=== PATIENT | male | born 1950 | race Caucasian/White ===

== ENCOUNTER → 2017-02-17 | Outpatient (REF) | payer MEDICARE, OTHER ==
[~2017-02-17] MED LIST: /ADVA50050 IN; /DULO30CA PO; /PANT40TA; /PANT40TA PO; ABIL2TAB; ACET65TA OR; ADVA230A INH; ALBU17IN2 IN; ALBUTEROL; ALKACAP2 PO; ALPR1TAB3 PO; ASPI1TAB PO; ASPI81TA83 PO; ATOR1TAB19 PO; BENZOCAINE TOP; BISO5TAB5 PO; COMBVENT INH; COUM2.5T11 PO; DOCUSATE OR; FINA5TAB2 PO; FISH1000 PO; FISH120012 PO; IBUP-1114 PO; KLON2TAB PO; LASI40TA PO; LIPI10TA PO; LOPR50TA PO; METH40TA PO; METO50TA4; MILKSUS OR; MULT1TAB10 PO; OXYC-299 PO; PANT40TA2 PO; PERC5TAB6 PO; PRED10TA2 OR; PRED20TA OR; PROS5TAB PO; SENNA OR; SPIR1CAP INH; TOPR50TA OR; VARE05TA; VITA100C7 PO; VITA400C PO; VITAMIN B COMPLE1 PO; WELL100T PO; WELL75TA OR; XANA3TAB; ventolin INH; zofran OR
== END ==
LOC: M LAB REF 12:52
PROVIDERS: ATTEND Nurse Practitioner Family
DX: Z01.89 Encounter for other specified special examinations (principal)

== ENCOUNTER → 2017-11-16 | Outpatient (CLI) | payer MEDICARE, OTHER | LOC: M SMT 11:31 | DX: J43.2 Centrilobular emphysema (principal) | CPT/HCPCS: 71046 ==

== ENCOUNTER → 2019-05-09 | Outpatient (CLI) | payer MEDICARE, OTHER ==
[~2019-05-09] MED LIST changes: -/ADVA50050 IN; -/DULO30CA PO; -/PANT40TA; -/PANT40TA PO; +ADVA1AER2 IN; -ASPI1TAB PO; +ASPI81TA26 PO; -COUM2.5T11 PO; +COUM2.5T17 PO; +CYMB1CAP5 PO; +METO-743 OR; +OXYC-141 PO; -OXYC-299 PO; -PANT40TA2 PO; +PANT40TA3 PO; +PERC5TAB12 PO; -PERC5TAB6 PO; +PROT1TAB2; +PROT1TAB2 PO; -TOPR50TA OR
--- NOTE | 2019-05-09 12:18 | REP ---
Left lower extremity Duplex Doppler venous ultrasound: Real time compression and duplex Doppler interrogation of the left lower extremity deep venous system is performed. The left common femoral, superficial femoral and popliteal veins are fully compressible with transducer pressure and demonstrate normal spontaneous and phasic flow, without evidence of deep venous thrombosis. Impression: No evidence of deep venous thrombosis of the left lower extremity femoral popliteal venous system. Electronically Signed by Cornelio Wade MD 05/09/2019 12:09 P
== END ==
LOC: M RAD 11:15
PROVIDERS: ATTEND Podiatrist
DX: M79.605 Pain in left leg (principal)

== ENCOUNTER → 2020-08-28 | Outpatient (REF) | payer MEDICARE, OTHER ==
[~2020-08-28] MED LIST changes: +BISO5TAB14 PO; -BISO5TAB5 PO; +PANT40TA29 PO; -PANT40TA3 PO
[2020-08-28 17:50] LABS: INR 1.02; PROTHROMBIN TIME 13.6 SECONDS (12.5-14.3)
[2020-08-28 17:51] LABS: PARTIAL THROMBOPLASTIN TIME 42.2 SECONDS (24.2-38.5)
== END ==
LOC: M LAB REF 17:02
PROVIDERS: ATTEND Internal Medicine Pulmonary Disease
DX: R91.8 Other nonspecific abnormal finding of lung field (principal); Z79.01 Long term (current) use of anticoagulants

== ENCOUNTER → 2020-10-11 | Outpatient (CLI) | payer MEDICARE, OTHER | LOC: M PLALAB 11:08 | PROVIDERS: ATTEND Internal Medicine Pulmonary Disease | DX: J43.1 Panlobular emphysema (principal) ==

== ENCOUNTER → 2021-02-19 | Outpatient (REF) | payer MEDICARE, OTHER ==
[2021-02-19 15:12] LABS: BASO # 0.1 10^3/uL (0.0-0.2); EOS # 0.2 10^3/uL (0.0-0.5); EOS % 3.1 % (0.0-3.0); HEMATOCRIT 41.9 % (42.0-52.0); HEMOGLOBIN 13.3 g/dl (13.5-17.5); LYMPH # 2.3 10^3/uL (1.5-5.0); LYMPH % 32.2 % (24.0-44.0); MEAN CORPUSCULAR HGB CONC 31.7 g/dl (32.0-36.5); MEAN CORPUSCULAR VOLUME 94.6 fl (80.0-96.0); MONO # 0.8 10^3/uL (0.0-0.8); MONO % 11.3 % (2.0-8.0); NEUTROPHILS # 3.7 10^3/uL (1.5-8.5); NEUTROPHILS % 52.1 % (36.0-66.0); PLATELET COUNT, AUTOMATED 217 10^3/uL (150-450); RED BLOOD COUNT 4.43 10^6/uL (4.30-6.10); WHITE BLOOD COUNT 7.1 10^3/uL (4.0-10.0)
[2021-02-19 15:31] LABS: ERYTHROCYTE SEDIMENTATION RATE 16 mm/hr (0-20)
[2021-02-19 15:42] LABS: ALBUMIN 3.6 GM/DL (3.2-5.2); ALT/SGPT 26 U/L (12-78); BILIRUBIN,TOTAL 0.3 MG/DL (0.2-1.0); BLOOD UREA NITROGEN 18 MG/DL (7-18); C REACTIVE PROTEIN QUANTITATIV 0.92 MG/DL (0.00-0.30); CALCIUM LEVEL 9.8 MG/DL (8.8-10.2); CARBON DIOXIDE LEVEL 33 MEQ/L (21-32); CHLORIDE LEVEL 107 MEQ/L (98-107); GLOMERULAR FILTRATION RATE > 60.0 (>42); GLUCOSE, FASTING 79 MG/DL (70-100); POTASSIUM SERUM 4.6 MEQ/L (3.5-5.1); SODIUM LEVEL 143 MEQ/L (136-145); TOTAL PROTEIN 6.9 GM/DL (6.4-8.2)
== END ==
LOC: M SFHCPLAZ 12:40
PROVIDERS: ATTEND Internal Medicine Infectious Disease
DX: A31.0 Pulmonary mycobacterial infection (principal)
CPT/HCPCS: 36415; 80053; 85025; 85652; 86140; G0463

== ENCOUNTER → 2021-03-11 | Outpatient (CLI) | payer MEDICARE, OTHER ==
--- NOTE | 2021-03-11 15:26 | REP ---
INDICATION: ABN FINDINGS OF LUNG FIELD COMPARISON: Multiple the latest 10/30/2020 TECHNIQUE: Limited noncontrast enhanced helical technique FINDINGS: There is stable mediastinal adenopathy and borderline bilateral hilar lymph nodes. There are no pleural or pericardial effusions. There is no change in the imaged upper abdomen or imaged osseous structures. Evaluation of the lung montes shows an asymmetric pleural base mass density in the right upper lobe laterally with a fiducial marker in place status quo. Also in the right upper lobe there is an asymmetric pleural based density more posteriorly than the aforementioned and abutting the major fissure also having a stable appearance. There are scattered asymmetric densities all of which appear stable. The density seen previously in the left lower lobe has nearly completely resolved. No definite new abnormal nodules, masses, or opacities have developed. There is cylindrical bronchiectasis status quo. IMPRESSION: 1. Improvement in the previously present asymmetric density in the left lower lobe as described above. 2. Other stable appearing chronic changes as described above. 3. Adenopathy as described above. 4. Other findings as described above. <Electronically signed by Dylon Ambrose > 03/11/21 1961
== END ==
LOC: M RAD 14:24
PROVIDERS: ATTEND Internal Medicine Pulmonary Disease
DX: R91.8 Other nonspecific abnormal finding of lung field (principal); R59.0 Localized enlarged lymph nodes

== ENCOUNTER → 2021-07-22 | Outpatient (CLI) | payer MEDICARE, OTHER ==
--- NOTE | 2021-07-22 13:38 | REP ---
INDICATION: ABNORMAL FINDING OF LUNG FIELD COMPARISON: Multiple the latest 03/11/2021 also without contrast TECHNIQUE: Standard helical technique without intravenous contrast FINDINGS: There is no significant change in appearance of the mediastinum or pulmonary malia. There is adenopathy status quo. No pleural or pericardial effusions have developed. There is no significant change in appearance of the imaged upper abdomen or imaged osseous structures. Evaluation of the lung montes shows beam hardening artifact in a right upper lobe mass secondary to fiducial marker status quo. The mass itself is also unchanged. The asymmetric density seen more inferiorly in the right upper lobe on the prior exam is completely unchanged. 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 There is cylindrical and varicoid bronchiectasis status quo. There are emphysematous changes status quo. In the left upper lobe there is a 6 mm size nodule which represents a change from all prior exams. IMPRESSION: 1. New left upper lobe nodule as described above. According to the revised Fleischner society criteria this represents a category 4A lesion for which a 3 month follow-up chest CT is recommended. 2. Other findings and chronic lung field changes as described above. <Electronically signed by Dylon Ambrose > 07/22/21 2056
== END ==
LOC: M PLAIMG 10:42
PROVIDERS: ATTEND Internal Medicine Pulmonary Disease
DX: R91.1 Solitary pulmonary nodule (principal)

== ENCOUNTER → 2021-08-22 | Outpatient (CLI) | payer MEDICARE, OTHER ==
[2021-08-22 15:25] LABS: BASO # 0.1 10^3/uL (0.0-0.2); EOS # 0.7 10^3/uL (0.0-0.5); EOS % 8.6 % (0.0-3.0); HEMATOCRIT 38.8 % (42.0-52.0); HEMOGLOBIN 12.7 g/dl (13.5-17.5); LYMPH # 1.9 10^3/uL (1.5-5.0); MEAN CORPUSCULAR HEMOGLOBIN 31.2 pg (27.0-33.0); MEAN CORPUSCULAR HGB CONC 32.7 g/dl (32.0-36.5); MEAN CORPUSCULAR VOLUME 95.3 fl (80.0-96.0); MONO # 0.7 10^3/uL (0.0-0.8); MONO % 9.1 % (2.0-8.0); NEUTROPHILS # 4.3 10^3/uL (1.5-8.5); PLATELET COUNT, AUTOMATED 210 10^3/uL (150-450); RED BLOOD COUNT 4.07 10^6/uL (4.30-6.10); WHITE BLOOD COUNT 7.7 10^3/uL (4.0-10.0)
[2021-08-22 15:55] LABS: ERYTHROCYTE SEDIMENTATION RATE 24 mm/hr (0-20)
[2021-08-22 15:57] LABS: ALBUMIN 3.2 GM/DL (3.2-5.2); ALT/SGPT 35 U/L (12-78); BILIRUBIN,TOTAL 0.3 MG/DL (0.2-1.0); BLOOD UREA NITROGEN 17 MG/DL (7-18); C REACTIVE PROTEIN QUANTITATIV 4.78 MG/DL (0.00-0.30); CALCIUM LEVEL 9.4 MG/DL (8.8-10.2); CARBON DIOXIDE LEVEL 31 MEQ/L (21-32); CHLORIDE LEVEL 109 MEQ/L (98-107); CHOLESTEROL LEVEL 130 MG/DL (<200); CHOLESTEROL RISK RATIO 1.969 (<5); CREATININE FOR GFR 0.78 MG/DL (0.70-1.30); GLOMERULAR FILTRATION RATE > 60.0 (>42); GLUCOSE, FASTING 103 MG/DL (70-100); HDL CHOLESTEROL 66 MG/DL (>40); LDL CHOLESTEROL 55 MG/DL (<100); NON-HDL-C 64 MG/DL; POTASSIUM SERUM 4.2 MEQ/L (3.5-5.1); SODIUM LEVEL 142 MEQ/L (136-145); TOTAL PROTEIN 6.5 GM/DL (6.4-8.2); TRIGLYCERIDES LEVEL 43 MG/DL (<150)
== END ==
LOC: M PLALAB 11:44
PROVIDERS: ATTEND Internal Medicine Infectious Disease
DX: A31.0 Pulmonary mycobacterial infection (principal); I25.10 Atherosclerotic heart disease of native coronary artery without angina pectoris
CPT/HCPCS: 36415; 80053; 80061; 85025; 85652; 86140; G0463

== ENCOUNTER → 2021-11-19 | Outpatient (CLI) | payer MEDICARE, OTHER | LOC: M RAD 10:43 | PROVIDERS: ATTEND Internal Medicine Pulmonary Disease | DX: R91.8 Other nonspecific abnormal finding of lung field (principal); J47.9 Bronchiectasis, uncomplicated; J84.10 Pulmonary fibrosis, unspecified ==

== ENCOUNTER → 2022-05-23 | Outpatient (CLI) | payer MEDICARE, OTHER | LOC: M RAD 10:06 | PROVIDERS: ATTEND Internal Medicine Pulmonary Disease | DX: R91.8 Other nonspecific abnormal finding of lung field (principal); J98.11 Atelectasis; K86.89 Other specified diseases of pancreas ==

== ENCOUNTER → 2022-10-08 | Outpatient (CLI) | payer MEDICARE, OTHER | LOC: M RAD 09:58 | PROVIDERS: ATTEND Internal Medicine Pulmonary Disease | DX: R91.8 Other nonspecific abnormal finding of lung field (principal); J44.9 Chronic obstructive pulmonary disease, unspecified; I70.0 Atherosclerosis of aorta; I25.10 Atherosclerotic heart disease of native coronary artery without angina pectoris; R59.0 Localized enlarged lymph nodes ==